=== PATIENT | male | born 1985 | race Two or more races ===

== ENCOUNTER 2022-01-19 08:36 | Emergency (ER) | payer MEDICAID, OTHER ==
[~2022-01-19] VITALS: Ht 175.3 cm; Wt 104.5 kg
[2022-01-19 09:11] VITALS: BP 137/84
[2022-01-19] MEDS ORDERED: ALBUTEROL SULF 2.5 MG/0.5ML(0.5%) NEB SOLN NEB ONE (09:15)
[2022-01-19] MEDS ORDERED: IPRATROPIUM BROM 0.5 MG/2.5ML INH SOL NEB ONE (09:15)
[2022-01-19] MEDS ORDERED: ALB5IS NEB (09:41)
[2022-01-19] MEDS ORDERED: ALBU108A5 IN (09:41)
== END 2022-01-19 09:46 | disposition home or self-care (01) ==
LOC: ER 08:36
DX: J98.01 Acute bronchospasm (principal)
CPT/HCPCS: 94640; 99283; J7644

== ENCOUNTER 2022-04-03 19:33 | Emergency (ER) | payer MEDICAID ==
[~2022-04-03] VITALS: Ht 177.8 cm; Wt 65.4 kg
[~2022-04-03 19:33] MED LIST: ALB5IS NEB; ALBU108A5 IN
[2022-04-03] MEDS ORDERED: IBUP800T27 PO (21:37)
[2022-04-03] MEDS ORDERED: AMOX-277 PO (21:37)
[2022-04-03] MEDS ORDERED: KETOROLAC TROMETH 60MG/2ML VIAL IM ONE (21:45)
[2022-04-03 22:45] VITALS: BP 139/84
== END 2022-04-03 22:45 | disposition home or self-care (01) ==
LOC: ER 19:33
DX: G43.909 Migraine, unspecified, not intractable, without status migrainosus (principal); H66.92 Otitis media, unspecified, left ear; J32.9 Chronic sinusitis, unspecified
CPT/HCPCS: 70450; 96372; 99285; J1885

== ENCOUNTER 2025-01-26 09:03 | Emergency (ER) | payer MEDICAID ==
[~2025-01-26] VITALS: Ht 175.3 cm; Wt 85.4 kg
[~2025-01-26 09:03] MED LIST changes: +AMOX875T4 PO; +IBUP-1456 PO
[2025-01-26] MEDS ORDERED: CEPH500C PO (09:26)
--- NOTE | 2025-01-26 09:31 | ED.PDOC ---
History of Present Illness(SKN HPI Comments 39-year-old male who presents to the ED for complaint of wound check. The patient states he had an animal bite to the bilateral patella area a few months prior. Patient states the redness and surrounding erythema had went away but states one week prior he felt something bite him and since been having bilateral knee pain and redness and came today for evaluation. Patient in the ED has noted bites with surrounding erythema to bilateral patellar area. Patient otherwise has stable vitals in the ED and otherwise denies any associated symptoms. Patient denies any other symptoms at this time. Chief Complaint: Wound Check Time Seen by MD: 09:27 Primary Care Provider: PHILOMENA History of Present Illness: Nurses Notes, Medications, Allergies Allergies: Coded Allergies: Vancomycin (Verified Allergy, Unknown, 01/19/22) Home Meds Active Scripts Cephalexin Monohydrate (Cephalexin) 500 Mg Cap, 1 CAP PO QID for 7 Days, #28 CAP 0 Refills Prov:ANDREA JOHNSON COMPLIANCE [facility]GAL 01/26/25 Ibuprofen (Ibuprofen) 800 Mg Tab, 1 TAB PO TID PRN, #30 TAB 0 Refills Prov:ANIVAL TSAI 04/03/22 Amoxicillin & Pot Clavulanate (Amoxicillin/Potassium Cla) 875 Mg Tab, 1 TAB PO BID for 7 Days, #14 TAB 0 Refills Prov:ANIVAL TSAI 04/03/22 Albuterol Sulfate (Albuterol Sulfate Hfa) 108 Mcg/Act Aer, 108 MCG IN TID, #90 AER Prov:LEXUS HERNANDEZ 01/19/22 Albuterol Sulfate (Ventolin) 2.5 Mg/0.5 Ml Nb, 1 VIAL NEB Q4HR, #60 VIAL 1 Refill Prov:LEXUS HERNANDEZ 01/19/22 Information Source: Patient Mode of Arrival: Ambulatory Brought in by: Self Severity: Moderate Timing: Days Past Medical History PAST MEDICAL HISTORY: Denies Surgical History: Denies all surgeries Family History Family History: Unknown Social History Smoker: Non-Smoker Alcohol: Denies ETOH Use Drugs: Denies Drug Use Lives In: Home Constitutional: denies: chills, diaphoresis, fatigue, fever, malaise, sweats, weakness, others EENTM: denies: blurred vision, double vision, ear bleeding, ear discharge, ear drainage, ear pain, ear ringing, eye pain, eye redness, hearing loss, mouth pain, mouth swelling, nasal discharge, nose bleeding, nose congestion, nose pain, photophobia, tearing, throat pain, throat swelling, voice changes, others Respiratory: denies: cough, hemoptysis, orthopnea, SOB at rest, shortness of breath, SOB with excertion, stridor, wheezing, others Cardiovascular: denies: chest pain, dizzy spells, diaphoresis, Dyspnea on exertion, edema, irregular heart beat, left arm pain, lightheadedness, palpitations, PND, syncope, others Gastrointestinal: denies: abdomen distended, abdominal pain, blood streaked bowels, constipated, diarrhea, dysphagia, difficulty swallowing, hematemesis, melena, nausea, poor appetite, poor fluid intake, rectal bleeding, rectal pain, vomiting, others Genitourinary: denies: burning, dysuria, flank pain, frequency, hematuria, incontinence, penile discharge, penile sore, pain, testicle pain, testicle swelling, urgency, others Neurological: denies: dizziness, fainting, headache, left sided numbness, left sided weakness, numbness, paresthesia, pre-existing deficit, right sided numbness, right sided weakness, seizure, speech problems, tingling, tremors, weakness, others Musculoskeletal: denies: back pain, gout, joint pain, joint swelling, muscle pain, muscle stiffness, neck pain, others Integumetry: reports: lesions (Bilateral patellar area); denies: bruises, change in color, change in hair/nails, dryness, laceration, lumps, rash, wounds, others Allergic/Immunocompromised: denies: Difficulty Healing, Frequent Infections, Hives, Itching, others Hematologic/Lymphatic: denies: anemia, blood clots, easy bleeding, easy bruising, swollen glands, others Endocrine: denies: excessive hunger, excessive sweating, excessive thirst, excessive urination, flushing, intolerance to cold, intolerance to heat, unexplained weight gain, unexplained weight loss, others Psychiatric: denies: anxiety, bipolar disorder, depression, hopeless, panic disorder, schizophrenia, sleepless, suicidal, others All Other Systems: Reviewed and Negative Physical Exam General Appearance: No Apparent Distress, Normal HEENT: Normal ENT Inspection, Pharynx Normal, TMs Normal Neck: Full Range of Motion, Non-Tender, Normal, Normal Inspection Respiratory: Chest Non-Tender, Lungs Clear, No Accessory Muscle Use, No Respiratory Distress, Normal Breath Sounds Cardiovascular: No Edema, No JVD, No Murmur, No Gallop, Normal Peripheral Pulses, Regular Rate/Rhythm Breast Exam: Deferred Gastrointestinal: No Organomegaly, Non Tender, No Pulsatile Mass, Normal Bowel Sounds, Soft Genitalia: Deferred Pelvic: Deferred Rectal: Deferred Extremities: No calf tenderness, Normal capillary refill, Normal inspection, Normal range of motion, Non-tender, No pedal edema Musculoskeletal : Apperance: Normal Neurologic: Alert, marketing research intern II-XII nml as Tested, No Motor Deficits, Normal Affect, Normal Mood, No Sensory Deficits Cerebellar Function: Normal Reflexes: Normal Skin: Wounds (1 cm erythema to the bilateral patellar region) Lymphatic: No Adenopathy Was a procedure done? Was a procedure done?: No Differential Diagnosis (INTG) Differential Diagnosis: Other Abscess: Abscess, Bacteremia, Cellulitis X-Ray, Labs, Meds, VS Vital Signs Date Time Temp Pulse Resp B/P (MAP) Pulse Ox O2 Delivery O2 Flow Rate FiO2 01/26/25 09:40 98.3 78 16 142/68 (92) 98 98.3 01/26/25 09:40 68 16 97 Room Air 01/26/25 09:05 98.4 96 16 146/70 100 98.4 X-Ray, Labs, Meds, VS Comment Patient arrives alert and oriented, ABC's intact, afebrile, vital signs stable, saturating well in room air Patient likely with local inflammatory response from possible insect bite/sting. No evidence of systemic reaction such as shortness of breath, diffuse rash, drooling, facial/lip swelling. Doubtful for cellulitis given no fever, minimal erythema, minimal warmth. However, will give hand-written prescription for keflex in case symptoms worsen. Patient remains with minimal symptoms. Remains hemodynamically stable. Thought safe for discharge home. Tylenol and/or motrin at home for pain. Benadryl for itchiness. Hydrocortisone for itchiness. Ice/cold compress for comfort. Follow-up with primary care doctor in 2-3 days. Return to ER as needed. Discussion with independent historian (EMS, family) history obtained from the patient/parents (if applicable) at bedside Chronic conditions affecting care: None Social determinants of health affecting care: None Consideration of admission (observation or admission): I considered escalation of care to admission for this patient, however given the reassuring workup, the patient is safe for outpatient management. Discussion with the Radiology: No Tests considered but not performed: Prescription medication considered but not given: 12 lead EKG interpretation: Time of 1ST Reevaluation: 10:00 Reevaluation 1ST: Unchanged Patient Education/Counseling: Diagnosis, Treatment Family Education/Counseling: No Family Present SEPSIS Sepsis Screen Date sepsis recognized/suspect: Jan 26, 2025 Time Sepsis recognized/suspect: 906 Recent Procedure: No On Antibiotic Therapy: No Respiratory Rate >20: No Heart Rate >90: Yes Temp<36 C (96.8 F) or >38.3 C: No SBP <90 or MAP <65 mmHG: No New Acute Mental Status Change: No Is the patient on CPAP, BIPAP,: No Vital Signs Date Time Temp Pulse Resp B/P (MAP) Pulse Ox O2 Delivery O2 Flow Rate FiO2 01/26/25 09:40 98.3 78 16 142/68 (92) 98 98.3 01/26/25 09:40 68 16 97 Room Air 01/26/25 09:05 98.4 96 16 146/70 100 98.4 Departure 1 Departure Time of Disposition: 09:43 Impression: Primary Impression: Insect bite Qualified Codes: W57.XXXA - Bitten or stung by nonvenomous insect and other nonvenomous arthropods, initial encounter Disposition: HOME / SELF CARE / HOMELESS Condition: Stable e-Prescriptions Cephalexin Monohydrate (Cephalexin) 500 Mg Cap 1 CAP PO QID for 7 Days, #28 CAP 0 Refills Prov: ANDREA JOHNSON NP 01/26/25 Discharged With: Self Critical Care Note Critical Care Time?: No Stability Stability form required: No Heart Score Heart Score: Heart Score Response (Comments) Value History N/A 0 EKG N/A 0 Age N/A 0 Risk Factors N/A 0 Troponin N/A 0 Total 0 I personally scribed for ANDREA JOHNSON NP ([email or web address]) on 01/26/25 at 09:31. Electronically submitted by Alana Alfredo ([email or web address]). ANDREA JOHNSON NP Jan 26, 2025 09:31
[2025-01-26 09:40] VITALS: BP 142/68; PULSE 68; RESP 16; TEMP 98.3; O2SAT 97
== END 2025-01-26 09:43 | disposition home or self-care (01) ==
LOC: ER 09:03
DX: S81.052A Open bite, left knee, initial encounter (principal); S81.051A Open bite, right knee, initial encounter; W57.XXXA Bitten or stung by nonvenomous insect and other nonvenomous arthropods, initial encounter; Y93.89 Activity, other specified; Y92.89 Other specified places as the place of occurrence of the external cause; Y99.8 Other external cause status